=== PATIENT | female | born 1990 | race Hispanic/Latino ===

== ENCOUNTER 2016-11-13 23:18 | Emergency (ER) | payer SELFPAY ==
[~2016-11-13] VITALS: Ht 152.4 cm; Wt 67.1 kg
[2016-11-13 23:58] VITALS: BP 111/67
[2016-11-14] MEDS ORDERED: PRENATAL TABLE1 EAC2 PO (00:20)
[2016-11-14 00:23] LABS: ABSOLUTE BASOPHIL COUNT 0 /CUMM (0.0-0.2); ABSOLUTE EOSINOPHIL COUNT 0.1 /CUMM (0.0-0.7); ABSOLUTE GRANULOCYTE CT 6.3 /CUMM (1.4-6.5); ABSOLUTE LYMPH COUNT 3.1 /CUMM (1.2-3.4); ABSOLUTE MONOCYTE COUNT 0.5 /CUMM (0.10-0.60); BASOPHIL % 0.3 % (0.0-2.0); EOSINOPHIL % 0.6 % (0-5); GRANULOCYTE % 63.1 % (42.2-75.2); HEMATOCRIT 34.8 % (37-47); MEAN CORPUSCULAR HGB 27.4 PG (27.0-31.0); MEAN CORPUSCULAR HGB CONC 33.6 G/DL (33.0-37.0); MEAN CORPUSCULAR VOLUME 81.3 FL (81.0-99.0); MEAN PLATELET VOLUME 8.5 FL (7.4-10.4); PLATELET COUNT 248 /CUMM (130-400); RBC DISTRIBUTION WIDTH 13.1 % (11.5-14.5); RED BLOOD CELL CT 4.29 /CUMM (4.20-5.40); WHITE BLOOD CELL COUNT 9.9 /CUMM (4.8-10.8)
--- NOTE | 2016-11-14 00:44 | ED GI/GU/ABDOMINAL COMPLAINT ---
History of Present Illness General Chief Complaint: Abdominal Pain/Flank Pain Stated Complaint: "2WEEKS PREG. LOWER ABD /BACK PAIN" Source: patient, family Exam Limitations: language barrier Vital Signs & Intake/Output Vital Signs & Intake/Output Vital Signs Date Time Temp Pulse Resp B/P B/P Pulse O2 O2 Flow FiO2 Mean Ox Delivery Rate 11/13 2358 96.9 75 18 111/67 96 Room Air ED Intake and Output 11/14 0000 11/13 1200 Intake Total Output Total Balance Patient 148 lb Weight Weight Reported by Patient Measurement Method Allergies Coded Allergies: No Known Allergies (11/13/16) Reconcile Medications Vit No.130/Iron/FA ( Tablet) 27 MG IRON-800 MCG TABLET 1 TAB PO DAILY (Reported) Triage Note: TRIAGE: PATIENT TO ER FROM HOME W/ SPOUSE REPORTS +LOWER MID ABD/ GROIN PAIN X APPROX 4 HOURS, DENIES ANY VAGINAL BLEEDING. REPORTS W/ HEALTHY PREGNANCIES. -N/V/D. PATIENT REPORTS "2-3 WEEKS , DIDN'T SEE DOCTOR YET." *PATIENT MALAWIAN SPEAKING, SPOUSE ASSISTING W/ TRANSLATION IN TRIAGE. Triage Nurses Notes Reviewed? yes LMP (ages 10-50): date (2 months ago) ? y Is pt currently ? No Onset: 3 days Duration: day(s):, continues in ED, intermittent, waxing and waning Timing: recent history Quality/Severity: aching, cramping, moderate Location: generalized abdomen Radiation: no radiation Activities at Onset: none Prior Abdominal Problems: none Sexually Active: Yes Last Time You Were Sexual: less than 2 months ago Sexual Orientation: Heterosexual Use of Protection: No Modifying Factors: Worsens With: palpation. Associated Symptoms: abdominal pain HPI: 0002 3 months [employer] patient had last contraceptive injection. 2 months [employer] patient reports last period. 3 weeks [employer] she had a negative test. 3 days [employer] she complains of having episodic intermittent waxing and waning abdominal cramping radiating to her back mild to moderate in severity. 2 days [employer] she had a positive test. She denies fever chills nausea vomiting diarrhea chest pain cough shortness of breath headache dysuria rash bleeding. Past History Travel History Traveled to [place] past 21 day No Medical History Any Pertinent Medical History? 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 No Review of Systems Review of Systems Constitutional: Reports: no symptoms. EENTM: Reports: no symptoms. Respiratory: Reports: no symptoms. Cardiovascular: Reports: no symptoms. GI: Reports: see HPI, abdominal pain. Genitourinary: Reports: no symptoms. Musculoskeletal: Reports: no symptoms. Skin: Reports: no symptoms. Neurological/Psychological: Reports: no symptoms. Hematologic/Endocrine: Reports: no symptoms. Immunologic/Allergic: Reports: no symptoms. All Other Systems: Reviewed and Negative Physical Exam Physical Exam General Appearance: well developed/nourished, alert, awake, anxious, mild distress, obese Head: atraumatic, normal appearance Eyes: Bilateral: normal appearance, PERRL, EOMI, normal inspection. Ears, Nose, Throat, Mouth: hearing grossly normal, moist mucous membrane Neck: normal inspection, supple, full range of motion, normal alignment Respiratory: normal breath sounds, chest non-tender, no respiratory distress, quiet respiration, lungs clear Cardiovascular: regular rate/rhythm, normal peripheral pulses, norml femoral pulses equa Peripheral Pulses: 4+ carotid (R), 4+ carotid (L) Gastrointestinal: normal bowel sounds, soft, non-tender, no organomegaly Back: normal inspection, normal range of motion Extremities: normal range of motion, no ligament instability Neurologic/Psych: no motor/sensory deficits, awake, alert, oriented x 3, normal gait, normal mood/affect, 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 No Severe Sepsis Present: No Septic Shock Present: No Progress Differential Diagnosis: biliary colic, intrauterine , ovarian cyst, UTI /pyelo Plan of Care: Orders Procedure Date/time Status Add-on Test (ER Only) 11/14 0023 Active LIPASE 11/14 0002 Complete URINE 11/13 2330 Complete URINALYSIS 11/13 2330 Complete HUMAN BETA HCG TITRE 11/13 2330 Complete COMPREHENSIVE METABOLIC PANEL 11/13 2330 Complete CBC WITHOUT DIFFERENTIAL 11/13 2330 Complete Laboratory Tests 11/14/16 0010: Urinalysis LIGHT H, Urine Color YEL, Urine Clarity HAZY H, Urine pH 6.0, Ur Specific [place] 1.015, Urine Protein NEG, Urine Ketones NEG, Urine Nitrite NEG, Urine Bilirubin NEG, Urine Urobilinogen 0.2, Ur Leukocyte Esterase NEG, Ur Microscopic SEDIMENT EXAMINED, Urine RBC 1-3, Urine WBC 1-3 H, Ur Epithelial Cells FEW, Urine Bacteria RARE H, Urine Hemoglobin TRACE-LYSED, Urine Glucose NEG, Urine Test POSITIVE 11/14/16 0002: Anion Gap 10, Estimated GFR > 60, BUN/Creatinine Ratio 21.4, Glucose 87, Calcium 9.6, Total Bilirubin 0.3, AST 21, ALT 37, Alkaline Phosphatase 64, Total Protein 7.2, Albumin 4.2, Globulin 3.0, Albumin/Globulin Ratio 1.4, Lipase 193, Beta HCG , Quant 526.9, CBC w Diff NO MAN DIFF REQ, RBC 4.29, MCV 81.3, MCH 27.4, RDW 13.1, MPV 8.5, Gran % 63.1, Lymphocytes % 31.1, Monocytes % 4.9, Eosinophils % 0.6, Basophils % 0.3, Absolute Granulocytes 6.3, Absolute Lymphocytes 3.1, Absolute Monocytes 0.5, Absolute Eosinophils 0.1, Absolute Basophils 0, PUBS MCHC 33.6 Initial ED EKG: none Departure Departure Time of Disposition: 152 Disposition: HOME OR SELF CARE Condition: Stable Clinical Impression Primary Impression: Abdominal pain affecting Referrals: ALEYDA SAAB,LUANA Laguerre Call for obstetrics follow up. Departure Forms: Customer Survey General Discharge Information Prescriptions: Current Visit Scripts Vit #76/Iron,Carb/FA (Prenatabs Rx Tablet) 1 TAB PO DAILY #100 TAB
[2016-11-14] MEDS ORDERED: PRENATABS RX T1 EACH PO (01:56)
== END 2016-11-14 02:05 ==
LOC: ERH 23:18
PROVIDERS: Physician Assistant Medical
DX: O99.89 Other specified diseases and conditions complicating pregnancy, childbirth and the puerperium (principal); R10.9 Unspecified abdominal pain; Z3A.00 Weeks of gestation of pregnancy not specified
CPT/HCPCS: 81001; 81025; 96361; 96374; J0131